=== PATIENT | female | born 1965 | race Caucasian/White ===

== ENCOUNTER 2018-08-25 09:58 | Outpatient (CLI) | payer MEDICARE ==
--- NOTE | 2018-08-25 12:53 | BD ---
BONE DENSITOMETRY USING DEXA: HISTORY: Postmenopausal screening for osteoporosis. FINDINGS: Lumbar Spine: BMD (g/cm2) L1 0.737 T-Score: -2.3 Z-Score: -1.4 L2 0.810 T-Score: -2.0 Z-Score: -0.9 L3 0.858 T-Score: -2.1 Z-Score: -1.0 L4 0.816 T-Score: -2.2 Z-Score: -1.1 L1-L4 0.807 T-Score: -2.2 Z-Score: -1.1 Femoral Neck: 0.794 T-Score: -0.5 Z-Score: 0.6 Total Femur: 0.973 T-Score: 0.3 Z-Score: 0.9 There has been interval improvement of 0.7% in the BMD of the lumbar spine and an improvement of 0.5% of the BMD of the proximal femur since 05/12/2006. Impression: Osteopenia. POS: C
== END 2018-08-25 09:59 | disposition home or self-care (01) ==
LOC: BICMAMMO 09:58
PROVIDERS: ATTEND Internal Medicine
DX: Z12.31 Encounter for screening mammogram for malignant neoplasm of breast (principal); M85.89 Other specified disorders of bone density and structure, multiple sites; R92.1 Mammographic calcification found on diagnostic imaging of breast
CPT/HCPCS: 77063; 77067; 77080

== ENCOUNTER 2018-10-01 10:37 | Outpatient (CLI) | payer MEDICARE ==
--- NOTE | 2018-10-01 11:14 | RAD ---
CHEST PA AND LATERAL: HISTORY: Cough. Wheezing. FINDINGS: The heart size is normal. The aorta is tortuous. The lungs are well expanded without focal areas of consolidation. No pneumothoraces. There is a small left pleural effusion suggested. There is scol iosis of the spine. POS: [facility]
== END 2018-10-01 10:38 | disposition home or self-care (01) ==
LOC: BICRAD 10:37
PROVIDERS: ATTEND Internal Medicine
DX: R05 Cough (principal)
CPT/HCPCS: 71046

== ENCOUNTER 2018-10-20 14:35 | Outpatient (CLI) | payer MEDICARE ==
--- NOTE | 2018-10-20 15:54 | RAD ---
TWO VIEW CHEST: 10/20/18 HISTORY: Cough and pleural effusion. COMPARISON: 10/01/18. Lungs appear clear. Heart size is normal. Vascular markings normal. Posterior gutters are mildly blunted on the lateral view which could represent tiny effusions, althou gh some of this may represent pleural reaction due to flattened diaphragms. There has been no interva l change. IMPRESSION: No acute finding or significant interval change. POS: C
== END 2018-10-20 14:36 | disposition home or self-care (01) ==
LOC: BICRAD 14:35
PROVIDERS: ATTEND Internal Medicine
DX: R05 Cough (principal)
CPT/HCPCS: 71046